=== PATIENT | male | born 1965 | race African-American/Black ===

== ENCOUNTER → 2016-07-22 | Outpatient (CLI) | payer BC ==
[2016-07-22 16:12] LABS: BASO % 0.2 %; BASO ABS # 0.01 K/uL (0-0.2); COMPLETE YES; HEMATOCRIT 39.9 % (42-52); IG% 0.2 %; LYMPH % 20.5 %; MEAN CELL VOLUME 90.9 fL (80-100); MEAN CORPUSCULAR HEMOGLOBIN 31.4 pg (25-34); MEAN CORPUSCULAR HGB CONC 34.6 g/dl (32-36); MEAN PLATELET VOLUME 10.2 fL (7.4-10.4); MONO % 8.3 %; NEUT % 68.8 %; PLATELET COUNT 242 K/uL (130-400); RED BLOOD COUNT 4.39 M/uL (4.7-6.1); WHITE BLOOD COUNT 6.35 K/uL (4.8-10.8)
[2016-07-22 18:09] LABS: BLOOD UREA NITROGEN 18 mg/dl (7-18); BUN/CREATININE RATIO 21.9 (10-20); C-REACTIVE PROTEIN 0.59 mg/dl (0-0.29); CALCIUM 8.6 mg/dl (8.5-10.1); CARBON DIOXIDE 28 mmol/L (21-32); CHLORIDE 106 mmol/L (98-107); CREATININE 0.84 mg/dl (0.60-1.40); GLUCOSE 112 mg/dl (70-99); SODIUM 140 mmol/L (136-145); URIC ACID 8.2 mg/dl (2.6-7.2)
[2016-07-22 18:17] LABS: ALB/GLOB RATIO 1.3 (0.9-2); ALKALINE PHOSPHATASE 62 U/L (45-117); ALT/SGPT 46 U/L (12-78); AST/SGOT 28 U/L (15-37); CHOLESTEROL 220 mg/dl (0-200); CHOLESTEROL/HDL RATIO 3.9; HDL CHOLESTEROL 56 mg/dl; LDL CHOLESTEROL CALCULATED 145 mg/dl; RHEUMATOID FACTOR < 10.0 U/mL (0-15); TRIGLYCERIDES 96 mg/dl (0-150); VERY LOW DENSITY LIPOPROT CALC 19 mg/dl
[2016-07-22 18:52] LABS: LYME DISEASE AB IGG NEG (NEG); LYME DISEASE AB IGM NEG (NEG)
== END | disposition home or self-care (01) ==
LOC: C.LABBC 10:38
PROVIDERS: ATTEND Nurse Practitioner Family
DX: I10 Essential (primary) hypertension (principal); E78.00 Pure hypercholesterolemia, unspecified; E66.9 Obesity, unspecified; E88.81 Metabolic syndrome and other insulin resistance; M1A.9XX0 Chronic gout, unspecified, without tophus (tophi); M25.50 Pain in unspecified joint

== ENCOUNTER → 2016-11-30 | Outpatient (CLI) | payer BC ==
[~2016-11-30] VITALS: Ht 180.3 cm; Wt 180.8 kg
[2016-11-30 14:42] VITALS: BP 131/83; PULSE 93; Ht 180.3 cm; Wt 180.8 kg
== END | disposition home or self-care (01) ==
LOC: C.NEUR 13:45
PROVIDERS: ATTEND Internal Medicine Pulmonary Disease
DX: R06.83 Snoring (principal); R53.83 Other fatigue; E66.9 Obesity, unspecified

== ENCOUNTER → 2016-12-13 | Outpatient (CLI) | payer BC ==
--- NOTE | 2016-12-16 13:37 | POLYSOMNOGRAPH REPORT ---
CLINICAL DATA: 50-year-old male with a crowded airway, obesity, large neck, and fatigue. He snores while on his back and awakens himself gasping for breath. He was referred by Teddy Souza for a sleep study. On the evening of 12/13/2016, a home sleep apnea test was performed using a [employer] type 3 monitor. RECORDING RESULTS: Total recording time was 10 hours. The patient's monitoring time and estimated sleep time was 7.3 hours. RESPIRATORY DATA: Severe sleep apnea was documented. The LELA was 30. There were 18 obstructive, 3 mixed, and 1 central apneic episode. There were 194 hypopneic episodes. The longest respiratory event recorded was 42 seconds. OXIMETRY DATA: Significant nocturnal hypoxemia was seen. Oxygen juan jose was 78%. Mean saturation was 91%. Time below 89% was 36 minutes. HEART RATE DATA: Heart rates ranged from 54-75 beats per minute. SNORING DATA: Loud snoring was recorded throughout the night. IMPRESSION: Severe sleep apnea/hypopnea with an LELA of 30 with nocturnal hypoxemia. RECOMMENDATIONS: The patient may benefit from a repeat sleep study with CPAP. MATTD
== END | disposition home or self-care (01) ==
LOC: C.NEUR 08:22
PROVIDERS: ATTEND Internal Medicine Pulmonary Disease
DX: R53.83 Other fatigue (principal); E66.9 Obesity, unspecified; R06.83 Snoring

== ENCOUNTER → 2017-01-14 | Outpatient (CLI) | payer BC ==
[~2017-01-14] VITALS: Ht 180.3 cm; Wt 182.6 kg
[2017-01-14 14:56] VITALS: BP 155/96; PULSE 75; Ht 180.3 cm; Wt 182.6 kg
== END | disposition home or self-care (01) ==
LOC: C.NEUR 14:04
PROVIDERS: ATTEND Internal Medicine Pulmonary Disease
DX: G47.33 Obstructive sleep apnea (adult) (pediatric) (principal); R53.83 Other fatigue; I10 Essential (primary) hypertension; E66.9 Obesity, unspecified; Z68.25 Body mass index [BMI] 25.0-25.9, adult

== ENCOUNTER → 2017-05-09 | Outpatient (CLI) | payer BC ==
[2017-05-09 14:17] LABS: ALBUMIN 4.1 gm/dl (3.4-5.0); ALT/SGPT 47 U/L (12-78); AST/SGOT 21 U/L (15-37); BLOOD UREA NITROGEN 21 mg/dl (7-18); CALCIUM 8.8 mg/dl (8.5-10.1); CARBON DIOXIDE 27 mmol/L (21-32); CREATININE 0.87 mg/dl (0.60-1.40); GLUCOSE 118 mg/dl (70-99); SODIUM 136 mmol/L (136-145); URIC ACID 5.2 mg/dl (2.6-7.2)
[2017-05-09 14:19] LABS: ALKALINE PHOSPHATASE 75 U/L (45-117); CHOLESTEROL 215 mg/dl (0-200); LDL CHOLESTEROL CALCULATED 147 mg/dl; TOTAL PROTEIN 7.4 gm/dl (6.4-8.2)
== END | disposition home or self-care (01) ==
LOC: C.LABBC 10:10
PROVIDERS: ATTEND Nurse Practitioner Family
DX: I10 Essential (primary) hypertension (principal); E78.00 Pure hypercholesterolemia, unspecified; M1A.9XX0 Chronic gout, unspecified, without tophus (tophi); E66.9 Obesity, unspecified

== ENCOUNTER 2022-10-13 11:30 | Inpatient (IN) ==
[2022-10-13] MEDS ORDERED: SODIUM CHLORIDE 0.9% 1000ML 1,000 ML IV ONE (11:48)
[2022-10-13] MEDS ORDERED: ONDANSETRON INJ 2 MG/ML 2 ML VIAL IV STA (11:54)
[2022-10-13 12:35] LABS: Basophils # (auto) 0.02 K/uL (0-0.2); Basophils % (auto) 0.2 %; Eosinophils # (auto) 0.01 K/uL (0-0.50); Eosinophils % (auto) 0.1 %; Hematocrit (blood only) 33.9 % (42.0-52.0); Hemoglobin 11.6 g/dl (14.0-18.0); Immature Granulocytes # (auto) 0.08 K/uL (0.01-0.20); Immature Granulocytes % (auto) 0.6 %; Lymphocytes # (auto) 0.74 K/uL (1.2-3.4); Lymphocytes % (auto) 5.8 %; Mean Corpuscular Hemoglobin 31.5 pg (25.0-34.0); Mean Corpuscular Hgb Conc 34.2 g/dL (32.0-36.0); Mean Corpuscular Volume 92.1 fL (80.0-100.0); Mean Platelet Volume 9.9 fL (9.4-12.4); Monocytes # (auto) 1.12 K/uL (0.11-0.59); Monocytes % (auto) 8.8 %; Neutrophils # (auto) 10.75 K/uL (1.40-6.50); Neutrophils % (auto) 84.5 %; Platelet Count 275 K/uL (130-400); RDW Coefficient of Variation 12.5 % (11.5-14.5); RDW Standard Deviation 42.1 fL (36.4-46.3); Red Blood Count 3.68 M/uL (4.70-6.10); White Blood Count 12.72 K/ul (4.8-10.8)
[2022-10-13 12:54] LABS: Albumin Level 3.6 gm/dl (3.4-5.0); BUN Creatinine Ratio 17.2 (10-20); Bilirubin Direct 0.3 mg/dl (0-0.2); Bilirubin,Total 1.1 mg/dl (0.2-1.0); Calcium 9.2 mg/dl (8.6-10.3); Creatinine Clr Calc Pharmacy 137.8 ml/min; Est GFR (Non-African American) 95.8 ml/min; Magnesium 1.7 mg/dl (1.7-2.4); Potassium 4.3 mmol/L (3.5-5.1); Total Protein 7.3 gm/dl (6.0-8.3)
[2022-10-13] MEDS ORDERED: GLUCOSE 10 TAB/TUBE PO PRN ×2 (13:17→15:59)
[2022-10-13] MEDS ORDERED: GLUCOSE 40% GEL 15 GM TUBE PO PRN ×2 (13:17→15:59)
[2022-10-13] MEDS ORDERED: GLUCAGON FOR INJ 1 MG VIAL SQ PRN ×2 (13:17→15:59)
[2022-10-13] MEDS ORDERED: DEXTROSE 50% 50 ML SYRINGE IV PRN ×2 (13:17→15:59)
[2022-10-13] MEDS ORDERED: CARBOHYDRATES FOR HYPOGLYCEMIA PO PRN ×2 (13:17→15:59)
[2022-10-13] MEDS ORDERED: STAT INSULIN DRIP STA (13:17)
--- NOTE | 2022-10-13 13:24 | Electrocardiogram Report ---
Test Reason : Blood Pressure : / mmHG Vent. Rate : 096 BPM Atrial Rate : 096 BPM P-R Int : 158 ms QRS Dur : 080 ms QT Int : 328 ms P-R-T Axes : 067 028 000 degrees QTc Int : 414 ms Sinus rhythm with occasional Premature ventricular complexes Possible Inferior infarct , age undetermined Abnormal ECG No previous ECGs available Confirmed by Espinoza Sierra ([id number]) on 10/13/2022 1:24:06 PM Referred By: Confirmed By:Espinoza Sierra
[2022-10-13] MEDS ORDERED: INSULIN REGULAR 250 UNITS in SODIUM CHLORIDE 0.9% 247.5 ML IV SCH (13:30)
[2022-10-13] MEDS ORDERED: LACTATED RINGER'S 1,000 ML IV ONE (13:31)
--- NOTE | 2022-10-13 13:36 | History & Physical Report ---
Date of Service October 13, 2022 Assessment & Plan (1) Diabetic ketoacidosis: Plan: No infective etiology precipitating from history - suspect from just poorly controlled diabetes and some starvation ketosis Initial bicarb 19, anion gap 16, glucose 357 (POC 381) - very mild DKA Repeat labs after just 1L NSS bicarb 22 and anion gap 14 therefore insulin IV drip not started as bicarb corrected and minimal anion gap - will repeat labs around 8pm and as long as anion gap improving can continue without continuous IV drip. Will give 5 units IV insulin now then start basal/bolus SQ insulin Repeat BSG 1 hour after IV insulin to determine need for repeated doses Start Lantus 10 units BID (first dose now), lower than weight-based dosing as insulin naive and only mild DKA/hyperglycemia Novolog (weight-based): --Goal BSG Range: Low 140 mg/dL, High 160 mg/dL --Correction Factor: 25 mg/dL/unit --Carbohydrate ratio = 8 g/unit --BSGs ACHS if eating, q6h if npo HbA1C pending (2) Type 2 diabetes mellitus: (3) Severe obstructive sleep apnea: Plan: CPAP HS (4) Hypertension: Plan: Continue routine medications (5) Hypercholesterolemia: Plan: Continue usual routine medications Plan VTE Prophylaxis - Lovenox 40 mg SQ BID Diet - T2DM Disposition - observation status to med/tele Admission and Anticipated Discharge Date Admission Date: October 13, 2022 History of Present Illness Chief Complaint: Polyuria, fatigue, headache, sweating and chills Primary Care Provider: Teddy Souza III, CARLIE Tana Villalta is a 56 year old male who presents to the ER due to polyuria, fatigue, headache, sweating and chills. He reports ongoing symptoms for the last month but much worse over the last week. He was concerned about diabetic ketoacidosis therefore came to the ER today. He denies any upper respiratory infection symptoms. No UTI symptoms other than polyuria. One episode of vomiting yesterday. No other gastrointestinal symptoms. No objective fever. He reports improvement in his HbA1C from 10.5 [05/09] -> 5.1 [10/07] with Trulicity and low carbohydrate diet. Following this he was taking steroids more (prescribed for gout but used for generalized pains), increased travel and lack of low carb diet. HbA1C increased and he was switched to Ozempic. He stopped taking regular prednisone about a month ago but reports still not having a good diet and he feels the Ozempic is less effective than the Trulicity. Allergies Allergy/AdvReac Type Severity Reaction Status Date / Time Penicillins Allergy Unknown In Verified 10/13/22 14:15 childhood; Unknown Home Medications Medication Instructions Recorded Confirmed Type CPAP Machine #1 ea 02/20/19 10/13/22 Rx cholecalciferol (vitamin D3) 50 2,000 unit PO DAILY 03/26/19 10/13/22 History mcg (2,000 unit) tablet (Vitamin D3) ibuprofen 200 mg tablet (Advil) 400 mg PO BID 03/26/19 10/13/22 History vit A 300 mcg-C 200 mg-E 27 1 tab PO DAILY 03/26/19 10/13/22 History mg-lutein 2 mg and minerals tablet (Ocuvite with Lutein) alpha lipoic acid 200 mg capsule 200 mg PO DAILY 10/29/20 10/13/22 History glucosamine sulfate 1,000 mg 1,000 mg PO BID 10/29/20 10/13/22 History capsule allopurinol 300 mg tablet 300 mg PO HS #90 tabs 11/03/21 10/13/22 Rx atorvastatin 20 mg tablet 20 mg PO QPM #90 tabs 05/10/22 10/13/22 Rx diltiazem HCl 360 mg capsule,24 360 mg PO HS #90 caps 05/17/22 10/13/22 Rx hr,extended release lisinopril 10 1 tab PO HS #90 tabs 05/17/22 10/13/22 Rx mg-hydrochlorothiazide 12.5 mg tablet acetaminophen 500 mg tablet 1,000 mg PO BID 10/13/22 10/13/22 History metformin 1,000 mg tablet 1,000 mg PO BID 10/13/22 10/13/22 History semaglutide 1 mg/dose (4 mg/3 mL) 1 mg subcut .Saturdays10/13/22 10/13/22 History subcutaneous pen injector (Ozempic) Past Med/Surg History Medical History Fibromyalgia Gout Hydrocele Hypertension Metabolic syndrome reason for metformin Type 2 diabetes mellitus Urinary symptom or sign Surgical History H/O oral surgery History of myringotomy multiple times--bilt ears History of root canal procedure History of tonsillectomy History of wisdom tooth extraction Family History Mother Rheumatoid arthritis Diabetes Other No family history of adverse response to anesthesia Denies family history of Ovarian cancer Prostate cancer Myocardial infarction Breast cancer Colorectal cancer Social History Smoking Status: Former smoker Tobacco Type: Cigars Second Hand Exposure: Yes (family members smoked); Do You Dip or Chew Tobacco: No; Hx Alcohol Use: Yes Alcohol type: beer Hx Substance Use: No Preferred Language: Bruneian Communication Ability: Effective Visual Impairment: No Limitations Hearing Ability: Normal Project Assistant 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: No Beliefs That Will Affect Care: None marital status: Single Current Living Situation: Alone current occupational status: employed current occupation: [employer] Feels Safe at Home: Yes Childhood Exposure to Second-Hand Smoke: Yes Diet: regular Diet Comment: regular Dental Care, Regularly: Yes Physical Activity Frequency: Does not Exercise Seatbelt Use: always Sunscreen Use: No Assistive Devices: Cane, CPAP and Glasses Review of Systems Review of Systems: All systems reviewed & are unremarkable except as noted in HPI & below Physical Exam Constitutional: WD/WN, vitals as above + morbidly obese Eyes: PERRL, conjunctivae normal, anicteric sclerae ENMT: external ear and nose normal, oropharynx normal Neck: trachea midline, no thyromegaly Respiratory: normal respiratory effort, lungs clear to auscultation Cardiovascular: RRR, no murmur, no edema Gastrointestinal (Abdomen): normal bowel sounds, soft, nontender, no hepatosplenomegaly Musculoskeletal: no cyanosis or clubbing, extremities motor strength 5/5 Skin: no rashes, warm and dry Neurologic: moves all extremities and awake; not confused Psychiatric: A+Ox3, euthymic affect Results & Data Results & Data Vital Signs (Past 12 Hours) Vital Signs Temp Pulse Resp BP Pulse Ox O2 Del Method 10/13/22 12:28 97 H 10/13/22 12:25 99 H 18 97 Room Air 10/13/22 11:37 36.6 C 101 H 20 163/97 H 98 Room Air Laboratory Results Abnormal lab results 10/13/22 10/13/22 10/13/22 Range/Units 11:47 12:05 12:05 WBC 12.72 H (4.8-10.8) K/ul RBC 3.68 L (4.70-6.10) M/uL Hgb 11.6 L (14.0-18.0) g/dl Hct 33.9 L (42.0-52.0) % Neut # (Auto) 10.75 H (1.40-6.50) K/uL Lymph # (Auto) 0.74 L (1.2-3.4) K/uL [place] # (Auto) 1.12 H (0.11-0.59) K/uL Sodium 133 L (136-145) mmol/L Carbon Dioxide 19 L (21-32) mmol/L Anion Gap 16 H (3-11) Glucose 357 H* (70-99(Fasting)) mg/dl POC Glucose 381 H* (70-99) mg/dl Total Bilirubin 1.1 H (0.2-1.0) mg/dl Direct Bilirubin 0.3 H (0-0.2) mg/dl Urine Appearance (Clear) Urine Protein (Negative) Urine Glucose (UA) (Negative) Urine Ketones (Negative) Urine Blood (Negative) Urine WBC (Auto) (0-5) /hpf U Epithel Cells (Auto) (0-5) /lpf 10/13/22 10/13/22 10/13/22 Range/Units 13:02 14:08 14:34 WBC (4.8-10.8) K/ul RBC (4.70-6.10) M/uL Hgb (14.0-18.0) g/dl Hct (42.0-52.0) % Neut # (Auto) (1.40-6.50) K/uL Lymph # (Auto) (1.2-3.4) K/uL [place] # (Auto) (0.11-0.59) K/uL Sodium 135 L (136-145) mmol/L Carbon Dioxide (21-32) mmol/L Anion Gap 14 H (3-11) Glucose 301 H* (70-99(Fasting)) mg/dl POC Glucose 337 H* (70-99) mg/dl Total Bilirubin (0.2-1.0) mg/dl Direct Bilirubin (0-0.2) mg/dl Urine Appearance Cloudy A (Clear) Urine Protein 1+ H (Negative) Urine Glucose (UA) 3+ H (Negative) Urine Ketones 4+ H (Negative) Urine Blood Trace H (Negative) Urine WBC (Auto) 10-30 H (0-5) /hpf U Epithel Cells (Auto) 20-30 H (0-5) /lpf 10/13/22 Range/Units 15:50 WBC (4.8-10.8) K/ul RBC (4.70-6.10) M/uL Hgb (14.0-18.0) g/dl Hct (42.0-52.0) % Neut # (Auto) (1.40-6.50) K/uL Lymph # (Auto) (1.2-3.4) K/uL [place] # (Auto) (0.11-0.59) K/uL Sodium (136-145) mmol/L Carbon Dioxide (21-32) mmol/L Anion Gap (3-11) Glucose (70-99(Fasting)) mg/dl POC Glucose 292 H (70-99) mg/dl Total Bilirubin (0.2-1.0) mg/dl Direct Bilirubin (0-0.2) mg/dl Urine Appearance (Clear) Urine Protein (Negative) Urine Glucose (UA) (Negative) Urine Ketones (Negative) Urine Blood (Negative) Urine WBC (Auto) (0-5) /hpf U Epithel Cells (Auto) (0-5) /lpf Medications Administered ER Medications Given: NSS 1L bolus Ondansetron 4mg IV Insulin IV drip ordered (discontinued prior to being given by myself) ECG Rate (beats per minute): 96 Rhythm: normal sinus Findings: + PVC Comparison ECG Date: no prior available Code Status & VTE Plan Code Status Full VTE Prophylaxis Plan VTE Prophylaxis will be ordered: Yes PG Care Time/CCT Total # of Minutes Spent Total Time Spent with Patient: Total time spent is greater than 50% in coordination of care (as documented) at patient's floor/unit and/or counseling patient: Coding Level of Care Code 54035 INT INP/OBS CARE 3/75MIN Diagnoses Diabetic ketoacidosis E11.10 Type 2 diabetes mellitus E11.9 Severe obstructive sleep apnea G47.33 Hypertension I10 Hypercholesterolemia E78.00
[2022-10-13 14:34] LABS: Appearance Urine Cloudy (Clear); Bacteria Urine Automated Negative (Negative); Bilirubin Urine Negative (Negative); Blood Urine Trace (Negative); Color Urine Yellow; Epithelial Cell Urine Auto 20-30 /lpf (0-5); Glucose Urine UA 3+ (Negative); Ketones Urine 4+ (Negative); Leukocyte Esterase Urine Negative (Negative); Nitrite Urine Negative (Negative); Protein Urine 1+ (Negative); RBC Urine Automated 0-4 /hpf (0-4); Specific Gravity Urine 1.028 (1.000-1.030); Urobilinogen Urine Negative (Negative); pH Urine 5.5 (4.5-7.5)
[2022-10-13 15:27] LABS: BUN Creatinine Ratio 17.9 (10-20); Calcium 8.9 mg/dl (8.6-10.3); Creatinine Clr Calc Pharmacy 153.7 ml/min; Est GFR (African American) 116.1 ml/min; Est GFR (Non-African American) 100.2 ml/min; Magnesium 1.7 mg/dl (1.7-2.4); Phosphorus 2.9 mg/dl (2.5-4.9)
[2022-10-13] MEDS ORDERED: PHARMACY GLYCEMIC MGMT CONSULT PRN (15:38)
[2022-10-13] MEDS ORDERED: ONDANSETRON INJ 2 MG/ML 2 ML VIAL IV PRN (15:38)
[2022-10-13] MEDS ORDERED: LANTUS PER UNIT CHARGE SQ STA (15:38)
[2022-10-13] MEDS ORDERED: INSULIN HUMAN REGULAR PER UNIT 5 UNITS in SYRINGE 4.95 ML IV ONE (16:15)
[2022-10-13] MEDS: LACTATED RINGER'S 1,000 ML IV SCH ×2 (16:22→23:01)
[2022-10-13] MEDS ORDERED: INSULIN ASPART PER UNIT CHARGE SC SCH (16:30)
[2022-10-13 17:16] LABS: Estimated Average Glucose 289 mg/dl; Hemoglobin A1C 11.7 % (4.5-5.6)
[2022-10-13] MEDS: INSULIN ASPART PER UNIT CHARGE SC SCH ×2 (17:29→21:40)
--- NOTE | 2022-10-13 18:46 | Emergency Department Note ---
History of Present Illness General Chief complaint: Hyperglycemia Stated complaint: COMPLICATIONS FROM DIABETES Time Seen by Provider: 10/13/22 11:41 History of Present Illness Provider complaint: Hyperglycemia Onset (ago): week(s) 1 Maximum Pain Intensity: 5 56-year-old -[place] male presents emergency department for hyperglycemia. Patient reports that he was recently switched to Ozempic and he does not feel like it is working. He feels like his blood sugars have been elevated for the last week and he reports that he has been urinating more and has been feeling more tired. He denies any nausea or vomiting. Home Medications Medication Instructions Recorded Confirmed Type CPAP Machine #1 ea 02/20/19 10/13/22 Rx cholecalciferol (vitamin D3) 50 2,000 unit PO DAILY 03/26/19 10/13/22 History mcg (2,000 unit) tablet (Vitamin D3) ibuprofen 200 mg tablet (Advil) 400 mg PO BID 03/26/19 10/13/22 History vit A 300 mcg-C 200 mg-E 27 1 tab PO DAILY 03/26/19 10/13/22 History mg-lutein 2 mg and minerals tablet (Ocuvite with Lutein) alpha lipoic acid 200 mg capsule 200 mg PO DAILY 10/29/20 10/13/22 History glucosamine sulfate 1,000 mg 1,000 mg PO BID 10/29/20 10/13/22 History capsule allopurinol 300 mg tablet 300 mg PO HS #90 tabs 11/03/21 10/13/22 Rx atorvastatin 20 mg tablet 20 mg PO QPM #90 tabs 05/10/22 10/13/22 Rx diltiazem HCl 360 mg capsule,24 360 mg PO HS #90 caps 05/17/22 10/13/22 Rx hr,extended release lisinopril 10 1 tab PO HS #90 tabs 05/17/22 10/13/22 Rx mg-hydrochlorothiazide 12.5 mg tablet acetaminophen 500 mg tablet 1,000 mg PO BID 10/13/22 10/13/22 History metformin 1,000 mg tablet 1,000 mg PO BID 10/13/22 10/13/22 History semaglutide 1 mg/dose (4 mg/3 mL) 1 mg subcut .Saturdays10/13/22 10/13/22 History subcutaneous pen injector (Ozempic) Allergies Allergy/AdvReac Type Severity Reaction Status Date / Time Penicillins Allergy Unknown In Verified 10/13/22 14:15 childhood; Unknown Past Med/Surg History Medical History Fibromyalgia Gout Hydrocele Hypertension Metabolic syndrome reason for metformin Type 2 diabetes mellitus Urinary symptom or sign Surgical History H/O oral surgery History of myringotomy multiple times--bilt ears History of root canal procedure History of tonsillectomy History of wisdom tooth extraction Family History Mother Rheumatoid arthritis Diabetes Other No family history of adverse response to anesthesia Denies family history of Ovarian cancer Prostate cancer Myocardial infarction Breast cancer Colorectal cancer Social History Smoking Status: Former smoker Tobacco Type: Cigars Second Hand Exposure: Yes (family members smoked); Do You Dip or Chew Tobacco: No; Hx Alcohol Use: Yes Alcohol type: beer Hx Substance Use: No Preferred Language: Zambian Communication Ability: Effective Visual Impairment: No Limitations Hearing Ability: Normal [employer] 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: No Beliefs That Will Affect Care: None marital status: Single Current Living Situation: Alone current occupational status: employed current occupation: [employer] Feels Safe at Home: Yes Childhood Exposure to Second-Hand Smoke: Yes Diet: regular Diet Comment: regular Dental Care, Regularly: Yes Physical Activity Frequency: Does not Exercise Seatbelt Use: always Sunscreen Use: No Assistive Devices: Cane, CPAP and Glasses Physical Exam Vital Signs Vital Signs - 24 hr 10/13/22 11:37 10/13/22 12:25 10/13/22 12:28 Temperature 36.6 C Temperature Source Temporal Artery Scan Pulse Rate 101 H 99 H 97 H Pulse Rate from SpO2 Sensor Respiratory Rate 20 18 Respiratory Effort / Characteristics Non-Labored Respiratory Depth Normal Blood Pressure 163/97 H Blood Pressure Mean 119 Pulse Oximetry 98 97 Oxygen Delivery Method Room Air Room Air Sepsis Recent Fever Within 48 Hours No Sepsis New/Unexplained Change in Mental Status N/A Sepsis Action Taken by Nursing No Action Required 10/13/22 12:30 10/13/22 12:30 10/13/22 13:00 Temperature Temperature Source Pulse Rate 94 H Pulse Rate from SpO2 Sensor 89 Respiratory Rate 15 Respiratory Effort / Characteristics Respiratory Depth Blood Pressure 136/96 155/97 H Blood Pressure Mean 116 118 Pulse Oximetry 96 Oxygen Delivery Method Sepsis Recent Fever Within 48 Hours Sepsis New/Unexplained Change in Mental Status Sepsis Action Taken by Nursing 10/13/22 13:00 10/13/22 13:30 10/13/22 13:30 Temperature Temperature Source Pulse Rate 96 H 96 H Pulse Rate from SpO2 Sensor 95 H 95 H Respiratory Rate 14 27 H Respiratory Effort / Characteristics Respiratory Depth Blood Pressure 139/81 Blood Pressure Mean 94 Pulse Oximetry 98 97 Oxygen Delivery Method Sepsis Recent Fever Within 48 Hours Sepsis New/Unexplained Change in Mental Status Sepsis Action Taken by Nursing 10/13/22 14:00 10/13/22 14:00 Temperature Temperature Source Pulse Rate 92 H Pulse Rate from SpO2 Sensor 92 H Respiratory Rate 17 Respiratory Effort / Characteristics Respiratory Depth Blood Pressure 132/89 Blood Pressure Mean 109 Pulse Oximetry 99 Oxygen Delivery Method Sepsis Recent Fever Within 48 Hours Sepsis New/Unexplained Change in Mental Status Sepsis Action Taken by Nursing Physical Exam GENERAL: oriented to person, place, and time. appears well-developed and well- nourished. HENT: Exam performed. - Head: Normocephalic and atraumatic. EYES: Conjunctivae and EOM are normal. Right eye exhibits no discharge. Left eye exhibits no discharge. No scleral icterus. NECK: Normal range of motion. Neck supple. No JVD present. CV: Normal rate, regular rhythm, normal heart sounds and intact distal pulses. There is no peripheral edema. Palpable radial pulses bue. PULM/CHEST: Effort normal and breath sounds normal. No respiratory distress. No stridor. no wheezes. no rales. ABD: The abdomen is soft and obese. There is no tenderness. NEURO: Motor and sensation grossly intact. SKIN: Skin is warm and dry. He is not diaphoretic. PSYCH: normal mood and affect. Behavior is normal. Judgment and thought content normal. Course Course 1141: The patient was evaluated in room B12. A complete history and physical exam was performed Cardiac monitoring: An order was placed for continuous cardiac monitoring. The monitor shows a rate of 90 with sinus rhythm interpreted by me 1320: Vital signs stable. Labs show hyperglycemia with evidence of DKA. Patient be started on insulin drip and [facility] Dr. Delarosa team notified. Administered Medications Lactated Ringer's (Lr) 1,000 mls @ 150 mls/hr IV .Q6H40M [facility] Stop: 10/14/22 12:14 Last Admin: 10/13/22 16:22 Dose: 150 mls/hr Documented By: LOCO Insulin Aspart (Insulin Aspart Per Unit Charge) 0 units SC ACHS ROCKY Stop: 11/12/22 16:29 Last Admin: 10/13/22 17:29 Dose: 11 units Documented By: LOCO Co-signed By: SCOTTY Discontinued Medications Sodium Chloride (Nss 1000ml) 1,000 mls @ 999 mls/hr IV .Q1H1M ONE Stop: 10/13/22 12:48 Last Infusion: 10/13/22 14:06 Dose: 0 mls/hr Documented By: Admin: 10/13/22 12:21 Dose: 999 mls/hr Documented By: REINA Insulin Human Regular 250 (units/ Sodium Chloride) 250 mls @ 10 mls/hr IV .Q24H [facility]; Protocol Stop: 11/12/22 13:29 Last Admin: 10/13/22 16:01 Dose: Not Given Documented By: LOCO Co-signed By: SCOTTY Lactated Ringer's (Lr) 1,000 mls @ 999 mls/hr IV .Q1H1M ONE Stop: 10/13/22 14:31 Last Infusion: 10/13/22 15:40 Dose: 0 mls/hr Documented By: Admin: 10/13/22 14:19 Dose: 999 mls/hr Documented By: REINA Insulin Human Regular 5 units/ (Syringe) 5 mls @ 10 mls/min IV ONE ONE Stop: 10/13/22 16:16 Last Admin: 10/13/22 16:22 Dose: 10 mls/min Documented By: LOCO Co-signed By: SCOTTY Insulin Glargine (Lantus Per Unit Charge) 10 units SQ ONE STA Stop: 10/13/22 15:39 Last Admin: 10/13/22 16:22 Dose: 10 units Documented By: LOCO Co-signed By: SCOTTY Miscellaneous (Stat Insulin Drip) 1 each N/A NOW STA Stop: 10/13/22 13:18 Last Admin: 10/13/22 16:00 Dose: Not Given Documented By: LOCO Ondansetron HCl (Ondansetron Inj 2 Mg/Ml 2 Ml Vial) 4 mg IV NOW STA Stop: 10/13/22 11:55 Last Admin: 10/13/22 12:21 Dose: 4 mg Documented By: REINA Critical Care Time Critical Care Time: Yes Total Critical Care Time: 45 I have personally spent greater than 45 minutes of critical care time in the direct management of this patient. This includes bedside care, interpretation of diagnostic studies, and testing, discussion with consultants, patient, and family members, and other required patient management activities. This 45 minutes is in excess of all separately billable procedures. Medical Decision Making Laboratory Data Attestation: I reviewed the patient's lab results. 10/13/22 12:05 10/13/22 14:34 Lab Results 10/13/22 10/13/22 10/13/22 Range/Units 11:47 12:05 12:05 WBC 12.72 H (4.8-10.8) K/ul RBC 3.68 L (4.70-6.10) M/uL Hgb 11.6 L (14.0-18.0) g/dl Hct 33.9 L (42.0-52.0) % MCV 92.1 (80.0-100.0) fL MCH 31.5 (25.0-34.0) pg MCHC 34.2 (32.0-36.0) g/dL RDW Std Deviation 42.1 (36.4-46.3) fL RDW Coeff of Mike 12.5 (11.5-14.5) % Plt Count 275 (130-400) K/uL MPV 9.9 (9.4-12.4) fL Immature Gran % (Auto) 0.6 % Neut % (Auto) 84.5 % Lymph % (Auto) 5.8 % [place] % (Auto) 8.8 % Eos % (Auto) 0.1 % Baso % (Auto) 0.2 % Neut # (Auto) 10.75 H (1.40-6.50) K/uL Lymph # (Auto) 0.74 L (1.2-3.4) K/uL [place] # (Auto) 1.12 H (0.11-0.59) K/uL Eos # (Auto) 0.01 (0-0.50) K/uL Baso # (Auto) 0.02 (0-0.2) K/uL Immature Gran # (Auto) 0.08 (0.01-0.20) K/uL Sodium 133 L (136-145) mmol/L Potassium 4.3 (3.5-5.1) mmol/L Chloride 98 (98-107) mmol/L Carbon Dioxide 19 L (21-32) mmol/L Anion Gap 16 H (3-11) BUN 15 (6-23) mg/dl Creatinine 0.87 (0.6-1.4) mg/dl Est Cr Clr Drug Dosing 137.8 ml/min Est GFR ( Amer) 111.0 ml/min Est GFR (Non-Af Amer) 95.8 ml/min BUN/Creatinine Ratio 17.2 (10-20) Glucose 357 H* (70-99(Fasting)) mg/dl POC Glucose 381 H* (70-99) mg/dl Calcium 9.2 (8.6-10.3) mg/dl Magnesium 1.7 (1.7-2.4) mg/dl Total Bilirubin 1.1 H (0.2-1.0) mg/dl Direct Bilirubin 0.3 H (0-0.2) mg/dl AST 13 (13-39) U/L ALT 9 (7-52) U/L Alkaline Phosphatase 68 (34-104) U/L Total Protein 7.3 (6.0-8.3) gm/dl Albumin 3.6 (3.4-5.0) gm/dl Lipase 13 (11-82) U/L 10/13/22 Range/Units 13:02 WBC (4.8-10.8) K/ul RBC (4.70-6.10) M/uL Hgb (14.0-18.0) g/dl Hct (42.0-52.0) % MCV (80.0-100.0) fL MCH (25.0-34.0) pg MCHC (32.0-36.0) g/dL RDW Std Deviation (36.4-46.3) fL RDW Coeff of Mike (11.5-14.5) % Plt Count (130-400) K/uL MPV (9.4-12.4) fL Immature Gran % (Auto) % Neut % (Auto) % Lymph % (Auto) % [place] % (Auto) % Eos % (Auto) % Baso % (Auto) % Neut # (Auto) (1.40-6.50) K/uL Lymph # (Auto) (1.2-3.4) K/uL [place] # (Auto) (0.11-0.59) K/uL Eos # (Auto) (0-0.50) K/uL Baso # (Auto) (0-0.2) K/uL Immature Gran # (Auto) (0.01-0.20) K/uL Sodium (136-145) mmol/L Potassium (3.5-5.1) mmol/L Chloride (98-107) mmol/L Carbon Dioxide (21-32) mmol/L Anion Gap (3-11) BUN (6-23) mg/dl Creatinine (0.6-1.4) mg/dl Est Cr Clr Drug Dosing ml/min Est GFR ( Amer) ml/min Est GFR (Non-Af Amer) ml/min BUN/Creatinine Ratio (10-20) Glucose (70-99(Fasting)) mg/dl POC Glucose 337 H* (70-99) mg/dl Calcium (8.6-10.3) mg/dl Magnesium (1.7-2.4) mg/dl Total Bilirubin (0.2-1.0) mg/dl Direct Bilirubin (0-0.2) mg/dl AST (13-39) U/L ALT (7-52) U/L Alkaline Phosphatase (34-104) U/L Total Protein (6.0-8.3) gm/dl Albumin (3.4-5.0) gm/dl Lipase (11-82) U/L ECG Data Attestation: I personally reviewed and interpreted this ECG as follows: Rate (beats per minute): 96 Rhythm: + sinus with SA ECG Intervals/blocks: + Normal QRS, + Normal CO and + Normal QT-c ECG ST segments: + Normal ST segments [facility] Narrative 1141: The patient was evaluated in room B12. A complete history and physical exam was performed Cardiac monitoring: An order was placed for continuous cardiac monitoring. The monitor shows a rate of 90 with sinus rhythm interpreted by me 1320: Vital signs stable. Labs show hyperglycemia with evidence of DKA. Patient be started on insulin drip and [facility] team Dr. Delarosa team notified. Impression & Plan DKA (diabetic ketoacidosis) Discharge Plan Visit Data Chief Complaint: Hyperglycemia Stated Complaint: COMPLICATIONS FROM DIABETES ED Provider: Rashard Wilder Discharge Problem: DKA (diabetic ketoacidosis) Patient Disposition: Admitted As Inpatient Discharge Instructions Interventions: ED Discharge Assessment Last Done: 10/13/22 15:21
[2022-10-13 21:24] LABS: BUN Creatinine Ratio 19.2 (10-20); Calcium 8.6 mg/dl (8.6-10.3); Creatinine Clr Calc Pharmacy 179.2 ml/min; Est GFR (African American) 119.3 ml/min; Magnesium 1.7 mg/dl (1.7-2.4); Phosphorus 2.6 mg/dl (2.5-4.9)
[2022-10-13] MEDS: ENOXAPARIN INJ 40 MG/0.4 ML SYR SQ SCH (21:38)
[2022-10-13] MEDS: ACETAMINOPHEN 500 MG TAB PO SCH (21:38)
[2022-10-13] MEDS: LISINOPRIL/HCTZ 10/12.5MG TAB PO SCH (21:39)
[2022-10-13] MEDS: allopurinoL 300 MG TAB PO SCH (21:39)
[2022-10-13] MEDS: IBUPROFEN 200 MG TAB PO SCH (21:39)
[2022-10-13] MEDS: ATORVASTATIN 20 MG TAB PO SCH (21:39)
[2022-10-13] MEDS: dilTIAZem HCL 180 MG CAPCR PO SCH (21:39)
[2022-10-13] MEDS: LANTUS PER UNIT CHARGE SQ SCH (21:44)
--- NOTE | 2022-10-13 22:07 | XRay Report ---
XR chest 1V portable CLINICAL HISTORY: DKA TECHNIQUE: Single frontal radiograph of the chest was obtained. Comparison: None available at the time of this dictation. FINDINGS: Exam is limited by underpenetration. The cardiomediastinal silhouette is normal. The lungs are clear. No evidence of pleural effusion or pneumothorax. IMPRESSION: No acute chest disease. ACT 112: Negative or not required by law. Electronically signed by: Shahid Patton M.D. 10/13/2022 10:06 PM
[2022-10-14] MEDS: LACTATED RINGER'S 1,000 ML IV SCH (05:15)
[2022-10-14 06:24] LABS: Basophils # (auto) 0.01 K/uL (0-0.2); Basophils % (auto) 0.1 %; Eosinophils # (auto) 0.04 K/uL (0-0.50); Eosinophils % (auto) 0.4 %; Hemoglobin 10.8 g/dl (14.0-18.0); Immature Granulocytes # (auto) 0.08 K/uL (0.01-0.20); Immature Granulocytes % (auto) 0.9 %; Lymphocytes # (auto) 0.82 K/uL (1.2-3.4); Lymphocytes % (auto) 8.8 %; Mean Corpuscular Hemoglobin 31.1 pg (25.0-34.0); Mean Corpuscular Hgb Conc 33.8 g/dL (32.0-36.0); Mean Corpuscular Volume 92.2 fL (80.0-100.0); Mean Platelet Volume 9.6 fL (9.4-12.4); Monocytes # (auto) 0.79 K/uL (0.11-0.59); Monocytes % (auto) 8.5 %; Neutrophils # (auto) 7.54 K/uL (1.40-6.50); Neutrophils % (auto) 81.3 %; Platelet Count 243 K/uL (130-400); RDW Coefficient of Variation 12.5 % (11.5-14.5); RDW Standard Deviation 42.3 fL (36.4-46.3); Red Blood Count 3.47 M/uL (4.70-6.10); White Blood Count 9.28 K/ul (4.8-10.8)
[2022-10-14 06:57] LABS: BUN Creatinine Ratio 16.7 (10-20); Calcium 8.5 mg/dl (8.6-10.3); Creatinine Clr Calc Pharmacy 168.2 ml/min; Est GFR (African American) 116.1 ml/min; Est GFR (Non-African American) 100.2 ml/min; Magnesium 1.6 mg/dl (1.7-2.4); Phosphorus 3.1 mg/dl (2.5-4.9); Potassium 3.8 mmol/L (3.5-5.1)
[2022-10-14] MEDS: ENOXAPARIN INJ 40 MG/0.4 ML SYR SQ SCH ×2 (08:31→20:02)
[2022-10-14] MEDS: IBUPROFEN 200 MG TAB PO SCH (08:31)
[2022-10-14] MEDS: ACETAMINOPHEN 500 MG TAB PO SCH ×2 (08:31→20:02)
[2022-10-14] MEDS: INSULIN ASPART PER UNIT CHARGE SC SCH ×4 (08:36→20:52)
[2022-10-14] MEDS: LANTUS PER UNIT CHARGE SQ SCH (08:36)
[2022-10-14] MEDS ORDERED: LANTUS PER UNIT CHARGE SQ SCH ×2 (09:00→21:00)
--- NOTE | 2022-10-14 12:33 | Hospitalist Progress Note ---
Date of Service October 14, 2022 Assessment & Plan (1) Diabetic ketoacidosis: Plan: From poorly controlled diabetes Patient said his blood glucose was under better control when he was on Trulicity, his A1c then was around 6 However, he was transitioned to Ozempic, and he noticed that his home glucose checks gave him figures around 200-300 He presented to the hospital with a blood glucose of around 360, with high anion gap DKA, HbA1C 11.8 He did not require insulin drip, his anion gap has closed with basal and regular insulin sq However, he still woke up with hyperglycemia of around 300 Will increase his Glargine to 20 units BID, will determine his daily insulin r equirements Novolog (weight-based): --Goal BSG Range: Low 140 mg/dL, High 160 mg/dL --Correction Factor: 25 mg/dL/unit --Carbohydrate ratio = 8 g/unit --BSGs ACHS if eating, q6h if npo Patient 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 outpatient 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 (2) Type 2 diabetes mellitus: Plan: as above (3) Severe obstructive sleep apnea: Plan: CPAP HS (4) Hypertension: Plan: Continue routine medications (5) Hypercholesterolemia: Plan: Continue usual routine medications (6) High anion gap metabolic acidosis: Plan: secondary to DKA Now resolved Plan VTE Prophylaxis - Lovenox 40 mg SQ BID Diet - T2DM Disposition - continue hospitalization Admission and Anticipated Discharge Date Admission Date: October 14, 2022 Subjective patient seen and examined,no new complaints Review of Systems Review of Systems: All systems reviewed are negative, apart from the ones contained in the history. Physical Exam Physical Exam: The patient is awake, alert and oriented 3, morbidly obese HEENT--PERRL, EOMI, mucous membranes and oropharynx mildly dry Neck--supple. No JVD. No bruits. Thyroid normal, trachea midline, no adenopathy. Heart--normal S1 and S2. No murmurs, rubs or gallops. Lungs--clear bilaterally, no respiratory distress, no accessory muscle use. Abdomen--normal bowel sounds and soft. Mild epigastric and left sided abdominal pain Extremities--no cyanosis or clubbing. No edema. Dermatologic--normal skin turgor, normal color, no abnormal lymph nodes, no rash. Neurologic--cranial nerves II through XII grossly intact. Rheumatologic--normal range of motion. Psychiatric--normal affect. Results & Data Results & Data Vital Signs (Past 12 Hours) Vital Signs Temp Pulse Pulse Resp BP BP Pulse Ox 10/14/22 11:17 97.7 F 75 18 127/74 93 10/14/22 09:06 10/14/22 07:27 97.9 F 78 18 117/72 92 10/14/22 07:12 87 10/14/22 03:25 91 H 26 H 95 10/14/22 04:00 98.6 F 84 18 125/76 96 O2 Del Method 10/14/22 11:17 Room Air 10/14/22 09:06 Room Air 10/14/22 07:27 Room Air 10/14/22 07:12 10/14/22 03:25 10/14/22 04:00 CPAP PG Care Time/CCT Total # of Minutes Spent Total Time Spent with Patient: Total time spent is greater than 50% in coordination of care (as documented) at patient's floor/unit and/or counseling patient: Coding Level of Care Code 08849 SUB INP/OBS CARE 2/35MIN Diagnoses Diabetic ketoacidosis E11.10 Type 2 diabetes mellitus E11.9 Severe obstructive sleep apnea G47.33 Hypertension I10 Hypercholesterolemia E78.00 High anion gap metabolic acidosis E87.29 Time Spent (min) 35
[2022-10-14] MEDS ORDERED: INSULIN ASPART PER UNIT CHARGE SC ONE (13:30)
[2022-10-14] MEDS ORDERED: LANTUS PER UNIT CHARGE SQ ONE (13:30)
[2022-10-14] MEDS: MAGNESIUM SULFATE / D5W 1 GM/100 ML BAG IV SCH ×2 (13:59→16:03)
[2022-10-14] MEDS: ACETAMINOPHEN 325 MG TAB PO PRN (16:11)
[2022-10-14] MEDS ORDERED: IBUPROFEN 200 MG TAB PO PRN (16:13)
[2022-10-14] MEDS: allopurinoL 300 MG TAB PO SCH (20:02)
[2022-10-14] MEDS: dilTIAZem HCL 180 MG CAPCR PO SCH (20:02)
[2022-10-14] MEDS: LISINOPRIL/HCTZ 10/12.5MG TAB PO SCH (20:03)
[2022-10-14] MEDS: ATORVASTATIN 20 MG TAB PO SCH (20:03)
--- NOTE | 2022-10-14 21:14 | Communication Note ---
Date of Service: October 14, 2022 Urine cx with gram neg bacilli, sensitivities pending. Per admission note pt did endorse increased urinary frequency. Started on rocephin. Defer to day team for continuance of abx. Resident Activity Tracking Resident Involvement: Resident Care Provided Care Provided: Adult Hospital Medicine
[2022-10-14] MEDS ORDERED: cefTRIAXone SODIUM 2,000 MG in DEXTROSE 5% 50 ML IV ONE (21:30)
[2022-10-15] MEDS: ACETAMINOPHEN 325 MG TAB PO PRN (02:54)
[2022-10-15 06:13] LABS: Hematocrit (blood only) 29.3 % (42.0-52.0); Mean Corpuscular Hgb Conc 34.1 g/dL (32.0-36.0); Mean Corpuscular Volume 90.7 fL (80.0-100.0); Mean Platelet Volume 9.7 fL (9.4-12.4); Platelet Count 269 K/uL (130-400); RDW Coefficient of Variation 12.5 % (11.5-14.5); Red Blood Count 3.23 M/uL (4.70-6.10); White Blood Count 7.83 K/ul (4.8-10.8)
[2022-10-15 06:29] LABS: BUN Creatinine Ratio 16.1 (10-20); Calcium 8.4 mg/dl (8.6-10.3); Creatinine Clr Calc Pharmacy 211.6 ml/min; Est GFR (African American) 127.6 ml/min; Est GFR (Non-African American) 110.1 ml/min; Potassium 3.5 mmol/L (3.5-5.1)
[2022-10-15] MEDS: ACETAMINOPHEN 500 MG TAB PO SCH ×2 (08:28→20:19)
[2022-10-15] MEDS: ENOXAPARIN INJ 40 MG/0.4 ML SYR SQ SCH ×2 (08:29→20:18)
[2022-10-15] MEDS: INSULIN ASPART PER UNIT CHARGE SC SCH ×4 (08:36→21:36)
[2022-10-15] MEDS: LANTUS PER UNIT CHARGE SQ SCH ×2 (08:36→21:36)
--- NOTE | 2022-10-15 12:38 | Hospitalist Progress Note ---
Date of Service October 15, 2022 Assessment & Plan (1) Diabetic ketoacidosis: Plan: From poorly controlled diabetes Patient said his blood glucose was under better control when he was on Trulicity, his A1c then was around 6 However, he was transitioned to Ozempic, and he noticed that his home glucose checks gave him figures around 200-300 He presented to the hospital with a blood glucose of around 360, with high anion gap DKA, HbA1C 11.8 He did not require insulin drip, his anion gap has closed with basal and regular insulin sq Although his blood glucose in now under better control, he still woke up with hyperglycemia Will increase his Glargine to 30 units BID, will determine his daily insulin requirements Novolog (weight-based): --Goal BSG Range: Low 140 mg/dL, High 160 mg/dL --Correction Factor: 25 mg/dL/unit --Carbohydrate ratio = 8 g/unit --BSGs ACHS if eating, q6h if npo 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 (2) UTI (urinary tract infection): Plan: Urine cultures growing Klebsiella Pnemonia tilley sensitive Will transition to POCiprofloxacin (3) Type 2 diabetes mellitus: Plan: as above (4) Severe obstructive sleep apnea: Plan: CPAP HS (5) Hypertension: Plan: Continue routine medications (6) Hypercholesterolemia: Plan: Continue usual routine medications (7) High anion gap metabolic acidosis: Plan: secondary to DKA Now resolved Plan VTE Prophylaxis - Lovenox 40 mg SQ BID Diet - T2DM Disposition - continue hospitalization Admission and Anticipated Discharge Date Admission Date: October 14, 2022 Subjective patient seen and examined,no new complaints Review of Systems Review of Systems: All systems reviewed are negative, apart from the ones contained in the history. Physical Exam Physical Exam: The patient is awake, alert and oriented 3, morbidly obese HEENT--PERRL, EOMI, mucous membranes and oropharynx mildly dry Neck--supple. No JVD. No bruits. Thyroid normal, trachea midline, no adenopathy. Heart--normal S1 and S2. No murmurs, rubs or gallops. Lungs--clear bilaterally, no respiratory distress, no accessory muscle use. Abdomen--normal bowel sounds and soft. Mild epigastric and left sided abdominal pain Extremities--no cyanosis or clubbing. No edema. Dermatologic--normal skin turgor, normal color, no abnormal lymph nodes, no rash. Neurologic--cranial nerves II through XII grossly intact. Rheumatologic--normal range of motion. Psychiatric--normal affect. Results & Data Results & Data Vital Signs (Past 12 Hours) Vital Signs Temp Pulse Pulse Resp BP BP Pulse Ox 10/15/22 11:35 98.1 F 90 16 126/88 93 10/15/22 10:00 10/15/22 08:32 98.2 F 71 20 119/76 95 10/15/22 07:10 78 10/15/22 04:05 98.2 F 80 18 128/75 96 O2 Del Method 10/15/22 11:35 Room Air 10/15/22 10:00 Room Air 10/15/22 08:32 Room Air 10/15/22 07:10 10/15/22 04:05 CPAP PG Care Time/CCT Total # of Minutes Spent Total Time Spent with Patient: Total time spent is greater than 50% in coordination of care (as documented) at patient's floor/unit and/or counseling patient: Coding Level of Care Code 78907 SUB INP/OBS CARE 2/35MIN Diagnoses Diabetic ketoacidosis E11.10 UTI (urinary tract infection) N39.0 Type 2 diabetes mellitus E11.9 Severe obstructive sleep apnea G47.33 Hypertension I10 Hypercholesterolemia E78.00 High anion gap metabolic acidosis E87.29 Time Spent (min) 35
[2022-10-15] MEDS ORDERED: VANCOMYCIN CONSULT ACTIVE PRN (17:23)
[2022-10-15] MEDS ORDERED: VANCOMYCIN HCL 2,750 MG in SODIUM CHLORIDE 0.9% 500 ML IV ONE (17:23)
[2022-10-15] MEDS ORDERED: metroNIDAZOLE 500 MG/100 ML BAG IV SCH (17:30)
[2022-10-15] MEDS ORDERED: Nursing to Pharmacy Communication SCH (18:45)
[2022-10-15] MEDS ORDERED: DAPTOmycin 450 MG in SYRINGE 0 ML IV SCH (19:00)
[2022-10-15] MEDS: LISINOPRIL/HCTZ 10/12.5MG TAB PO SCH (20:19)
[2022-10-15] MEDS: dilTIAZem HCL 180 MG CAPCR PO SCH (20:19)
[2022-10-15] MEDS: allopurinoL 300 MG TAB PO SCH (20:20)
[2022-10-15] MEDS: CIPROFLOXACIN 500 MG TAB PO SCH (20:21)
--- NOTE | 2022-10-15 21:45 | CT Scan Report ---
CT SCAN OF THE PELVIS WITHOUT IV CONTRAST CLINICAL HISTORY: Right groin abscess. COMPARISON STUDY: No priors. TECHNIQUE: CT scan of the pelvis is performed from the pelvic inlet to the proximal femora. Images a re reviewed in the axial, sagittal, and coronal planes. IV contrast was not administered for this exa mination. Note that the examination is suboptimal without IV contrast. A dose lowering technique was utilized adhering to the principles of ALARA. CT DOSE: 1628.07 mGy.cm FINDINGS: There is dermal thickening with subcutaneous inflammation seen in the right groin, typical in appeara nce for cellulitis. There is a small pocket of fluid/phlegmonous change at this site which measures a pproximately 2.3 cm. This likely represents a developing abscess and this is located at the dermal dudley rface. There is no associated soft tissue gas. There is no inguinal lymphadenopathy. The bladder, pro state, and seminal vesicles are normal as visualized. There is mild diverticulosis of the sigmoid col on without CT evidence of acute diverticulitis. Imaged bowel loops show no evidence of obstruction. A normal appendix is seen in the right lower quadrant. No intraperitoneal free air or free fluid is se en in the pelvis. The bony pelvis is intact. No lytic or blastic lesion is seen. Arthritic change is noted in the hips and sacroiliac joints. IMPRESSION: 1. Cellulitis of the right groin with phlegmonous change/small developing abscess as detailed above. 2. Pelvic viscera is normal as visualized. ACT 112: Negative or not required by law. Electronically signed by: Loco Nunez M.D. 10/15/2022 9:43 PM
[2022-10-16] MEDS: ACETAMINOPHEN 500 MG TAB PO SCH (08:38)
[2022-10-16] MEDS: CIPROFLOXACIN 500 MG TAB PO SCH (08:44)
[2022-10-16] MEDS: ENOXAPARIN INJ 40 MG/0.4 ML SYR SQ SCH (08:44)
[2022-10-16] MEDS: INSULIN ASPART PER UNIT CHARGE SC SCH (08:45)
[2022-10-16] MEDS: LANTUS PER UNIT CHARGE SQ SCH (08:46)
--- NOTE | 2022-10-16 11:51 | Discharge Summary ---
Date of Service October 16, 2022 Admission HPI Per Admitting Provider Tana Villalta is a 56 year old male who presents to the ER due to polyuria, fatigue, headache, sweating and chills. He reports ongoing symptoms for the last month but much worse over the last week. He was concerned about diabetic ketoacidosis therefore came to the ER today. He denies any upper respiratory infection symptoms. No UTI symptoms other than polyuria. One episode of vomiting yesterday. No other gastrointestinal symptoms. No objective fever. He reports improvement in his HbA1C from 10.5 [05/09] -> 5.1 [10/07] with Trulicity and low carbohydrate diet. Following this he was taking steroids more (prescribed for gout but used for generalized pains), increased travel and lack of low carb diet. HbA1C increased and he was switched to Ozempic. He stopped taking regular prednisone about a month ago but reports still not having a good diet and he feels the Ozempic is less effective than the Trulicity. Principal Diagnosis DKA, UTI Discharge Exam The patient is awake, alert and oriented 3, morbidly obese HEENT--PERRL, EOMI, mucous membranes and oropharynx mildly dry Neck--supple. No JVD. No bruits. Thyroid normal, trachea midline, no adenopathy. Heart--normal S1 and S2. No murmurs, rubs or gallops. Lungs--clear bilaterally, no respiratory distress, no accessory muscle use. Abdomen--normal bowel sounds and soft. Mild epigastric and left sided abdominal pain Extremities--no cyanosis or clubbing. No edema. Dermatologic--normal skin turgor, normal color, no abnormal lymph nodes, no rash. Neurologic--cranial nerves II through XII grossly intact. Rheumatologic--normal range of motion. Psychiatric--normal affect. Discharge Data Allergies Allergy/AdvReac Type Severity Reaction Status Date / Time Penicillins Allergy Unknown In Verified 10/13/22 14:15 childhood; Unknown Consultations 10/13/22 13:17 ED Decision to Admit Stat Ordered Studies 10/15/22 17:21 CT pelvis wo con Routine Hospital Course (1) Diabetic ketoacidosis: From poorly controlled diabetes Patient said his blood glucose was under better control when he was on Trulicity, his A1c then was around 6 However, he was transitioned to Ozempic, and he noticed that his home glucose checks gave him figures around 200-300 He presented to the hospital with a blood glucose of around 360, with high anion gap DKA, HbA1C 11.8 He did not require insulin drip, his anion gap has closed with basal and regular insulin sq Although his blood glucose in now under better control, he still woke up with hyperglycemia Will increase his Glargine to 30 units BID, will determine his daily insulin requirements Novolog (weight-based): --Goal BSG Range: Low 140 mg/dL, High 160 mg/dL --Correction Factor: 25 mg/dL/unit --Carbohydrate ratio = 8 g/unit --BSGs ACHS if eating, q6h if npo Patient will need outpatient follow up with an ramp agent (2) UTI (urinary tract infection): Urine cultures growing Klebsiella Pnemonia tilley sensitive Will transition to POCiprofloxacin (3) Type 2 diabetes mellitus: as above (4) Severe obstructive sleep apnea: CPAP HS (5) Hypertension: Continue routine medications (6) Hypercholesterolemia: Continue usual routine medications (7) High anion gap metabolic acidosis: secondary to DKA Now resolved Plan VTE Prophylaxis - Lovenox 40 mg SQ BID Diet - T2DM Disposition - d/c home Total Time Total Time Spent Total Time Spent (In Minutes): 35 Discharge Plan Discharge Items Patient Disposition: Home - Self-Care Reason For Visit: DIABETIC KETOACIDOSIS Discharge Diagnosis: DKA Activity: Resume your previous activity Non-emergency contact: Primary Care Provider Call non-emergency contact if: you have any medication questions Follow-up/Referrals: Teddy Souza III, CRNP [Primary Care Provider] - Diet: Carb Consistent or DM2 Addtl Attending Provider Instructions: Please make appointment to 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[employer] 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 Constantino Altamirano Pending Studies at Discharge: No Stand-Alone Forms: [employer], Smoking Cessation Medications and DC Order Prescriptions: New ciprofloxacin HCl 500 mg Tablet 500 mg PO BID 5 Days Qty: 10 0RF metronidazole [Flagyl] 375 mg capsule 375 mg PO BID 5 Days Qty: 10 0RF insulin glargine 100 unit/mL (3 mL) insulin pen 30 unit subcut BID Qty: 15 0RF (DME) pen needle,diabetic, disp unit 32 gauge x 5/32" needle See Rx Instructions .Route Qty: 100 0RF Rx Instructions: As directed Continued allopurinol 300 mg tablet 300 mg PO HS Qty: 90 3RF atorvastatin 20 mg tablet 20 mg PO QPM Qty: 90 1RF lisinopril-hydrochlorothiazide 10-12.5 mg tablet 1 tab PO HS Qty: 90 3RF diltiazem HCl 360 mg capsule,extended release 24 hr 360 mg PO HS Qty: 90 3RF (DME) CPAP Machine Misc See Dose Instructions .ROUTE .MEDSUPPLY Qty: 1 0RF Dose Instruction: As directed Rx Instructions: CPAP 5-20 cm water pressure with heated humidification, tubing, and supplies. TESSA: 99+ years. alpha lipoic acid 200 mg capsule 200 mg PO DAILY glucosamine sulfate 1,000 mg capsule 1,000 mg PO BID Rx Instructions: administer with meals Ocuvite with Lutein 1,000 unit-200 mg-60 unit-2 mg Tablet 1 tab PO DAILY cholecalciferol (vitamin D3) [Vitamin D3] 2,000 unit Tablet 2,000 unit PO DAILY ibuprofen [Advil] 200 mg Tablet 400 mg PO BID acetaminophen 500 mg Tablet 1,000 mg PO BID metformin 1,000 mg tablet 1,000 mg PO BID Ozempic 1 mg/dose (4 mg/3 mL) pen injector 1 mg subcut .SATURDAYS Discharge Orders: Discharge Order (Routine); Ordered 10/16/22 Ordered By: Bessy Chavez/Other Patient Handouts: Urinary Tract Infections in Men, Understanding Type 2 Diabetes, Abscess Abx Tx Admission Data Admit Date/Time: 10/14/22 11:01 Attending Provider: Bessy Neff Admit Provider: Ezekiel Delarosa Primary Care Provider: Teddy Souza III Other Providers: Ezekiel Delarosa Other Interventions: Discharge Summary Assessment (RN) Last Done: 10/16/22 10:04 Coding Level of Care Code 36777 INP/OBS DISCH >30 MIN Diagnoses Diabetic ketoacidosis E11.10 UTI (urinary tract infection) N39.0 Type 2 diabetes mellitus E11.9 Severe obstructive sleep apnea G47.33 Hypertension I10 Hypercholesterolemia E78.00 High anion gap metabolic acidosis E87.29 Time Spent (min) 35
== END 2022-10-16 11:26 | disposition home or self-care (01) | DRG 638 ==
LOC: ED 11:30 → 2W 11:30 → SUATTDRO 14:07 → 2W 15:21